=== PATIENT | male | born 1975 | race Caucasian/White ===

== ENCOUNTER 2017-09-15 18:40 | Emergency (ER) | payer OTHER, MEDICAID, SELFPAY ==
[2017-09-15 19:36] VITALS: BP 164/109; PULSE 76; RESP 16; TEMP 36.4; O2SAT 100; BMI 30.8
[2017-09-15] MEDS: ONDANSETRON 4 MG/2 ML INJ IV (20:01)
[2017-09-15 20:17] LABS: Add Manual Diff / Slide Review NO; Basophils Percent Auto 0.5 % (0-2); Eosinophils Percent Auto 2.7 % (2-4); Hemoglobin 13.4 g/dL (13.5-17.5); Lymphocytes Percent Auto 12.9 % (25-40); Mean Corpuscular HGB Conc 33.5 % (30-36); Mean Corpuscular Hemoglobin 26.3 PG (26-34); Mean Corpuscular Volume 78.5 fL (80-100); Monocytes Percent Auto 5.8 % (3-14); Neutrophils Absolute Auto 12000 /uL (3000-5900); Neutrophils Percent Auto 78.1 % (50-75); Platelet Count 203 X10^3/uL (150-400); Red Blood Cell Count 5.09 X10^6/uL (4.5-5.9); Red Cell Distribution Width 14.3 % (11.6-14.8); White Blood Cell Count 15.4 X10^3/uL (4.5-11.0)
[2017-09-15 20:27] LABS: Prothrombin Time 10.8 SECONDS (10.1-12.7)
[2017-09-15 20:29] LABS: PTT Partial Thromboplastin Tim 27 SECONDS (26.4-36.2)
[2017-09-15 20:31] LABS: Alanine Aminotransferase 30 IU/L (21-72); Albumin 4.4 g/dL (3.5-5.0); Albumin Globulin Ratio 1.5 (1.0-2.8); Alkaline Phosphatase 57 U/L (38-126); Aspartate Aminotransferase 26 IU/L (17-59); Bilirubin Total 0.5 mg/dL (0.2-1.3); Blood Urea Nitrogen 20 mg/dL (9-20); Calcium 9.6 mg/dL (8.4-10.2); Carbon Dioxide 31 mmol/L (22-32); Chloride 102 mmol/L (98-107); Estimated Glomerular Filt Rate > 60.0 mL/min (>60); Glucose 111 mg/dL (70-100); HEMOLYSIS < 15 (0-50); Lipase 41 U/L (23-300); Potassium 4.4 mmol/L (3.4-5.1); Sodium 143 mmol/L (137-145); Total Protein 7.4 g/dL (6.3-8.2)
--- NOTE | 2017-09-15 23:57 | ED.ABDPAIN ---
HPI - Abdominal Pain General Chief Complaint: Abdominal Pain Stated Complaint: ABD PAIN Time Seen by Provider: 09/15/17 23:57 Source: patient Mode of arrival: ambulatory Limitations: no limitations History of Present Illness HPI narrative: the patient had AG strength that he made himself this afternoon. Afterwards he developed right mid abdominal cramping and vomiting. He arrives here with ongoing abdominal pain with some radiation to the back. He has ongoing nausea, but has not vomited. He has no diarrhea. He denies constipation but does not have frequent bowel movements. He denies fever or chills. He has no urinary complaints. He has no chronic abdominal issues. He has no associated chest pain or dyspnea. Related Data Previous Rx's Medication Instructions Recorded ondansetron [Zofran ODT] 4 mg PO Q4H PRN #10 tab 09/16/17 Allergies Allergy/AdvReac Type Severity Reaction Status Date / Time No Known Drug Allergies Allergy Verified 09/15/17 19:36 Review of Systems Review of Systems All systems reviewed & are unremarkable except as noted in HPI and below Constitutional Denies chills, Denies fever(s), Denies lethargy and Denies weakness ENT Ears, Nose, Mouth, and Throat: Denies change in voice, Denies neck pain and Denies sore throat Cardiovascular Denies chest pain, Denies irregular heart rhythm, Denies lightheadedness, Denies palpitations, Denies dyspnea, Denies dyspnea on exertion and Denies orthopnea Respiratory Denies cough, Denies dyspnea, Denies dyspnea on exertion and Denies wheezing Gastrointestinal Gastrointestinal: Reports abdominal pain, Denies change in bowel habits, Denies diarrhea, Reports nausea and Reports vomiting Genitourinary Denies hematuria, Denies flank pain, Denies urinary incontinence and Denies urinary urgency Musculoskeletal Denies neck pain Integumentary/Breasts Denies pruritus, Denies erythema, Denies rash and Denies wounds Neurologic Denies weakness Endocrine Denies palpitations Allergic/Immunologic Denies wheezing [facility] Social History Smoking Status: Current every day smoker Exam Initial Vital Signs Initial Vital Signs: Vital Signs Temperature 97.6 F 09/15/17 19:36 Pulse Rate 76 09/15/17 19:36 Respiratory Rate 16 09/15/17 19:36 Blood Pressure 164/109 H 09/15/17 19:36 Pulse Oximetry 100 09/15/17 19:36 Const General: cooperative and well developed Nutritional Appearance: well nourished Orientation: alert, awake, oriented x3 and not confused HENMT Throat: posterior oropharynx normal Eyes Conjunctivae: conjunctivae normal Resp Effort & Inspection: normal respiratory effort, able to speak in complete sentences, no respiratory distress and no use of accessory muscles Auscultation: clear to auscultation bilaterally, no rales, no rhonchi and no wheezes Cardio Rate: regular rate Rhythm: regular rhythm Heart Sounds: no click, no gallops, no murmurs and no rubs Pulses: normal peripheral pulses GI Inspection: non-distended Palpation: soft, no hepatosplenomegaly, No guarding, No pulsatile mass and tender (RUQ) Auscultation: normal bowel sounds Back/Spine/Pelvis Back: No CVA tenderness Skin General: no rashes or lesions noted Neuro General: alert, oriented x3, gait normal and no focal motor deficits Speech: speech normal Extrem General: full ROM, no clubbing, cyanosis or edema, no pedal edema and no calf tenderness Course Orders Ordered: ED Orders 09/15/17 20:10 Complete Blood Count AUTO DIFF Stat Comprehensive Metabolic Panel Stat Lipase Stat Partial Thromboplastin Time Stat Prothrombin Time INR Stat 09/16/17 00:01 US abdomen complete Stat Discontinued Medications Ketorolac Tromethamine (Toradol) 30 mg IV NOW ONE Stop: 09/16/17 00:02 Last Admin: 09/16/17 00:27 Dose: 30 mg Metoclopramide HCl (Reglan) 10 mg IV NOW ONE Stop: 09/16/17 00:02 Last Admin: 09/16/17 00:27 Dose: 10 mg Ondansetron HCl (Zofran) 4 mg IV NOW ONE Stop: 09/15/17 19:46 Last Admin: 09/15/17 20:01 Dose: 4 mg Vital Signs - 8 hr 09/15/17 19:36 Temperature 97.6 F Pulse Rate 76 Respiratory Rate 16 Blood Pressure 164/109 H Pulse Oximetry 100 MDM - Abdominal Pain Lab Data Result diagrams: 09/15/17 20:10 09/15/17 20:10 Lab Results 09/15/17 09/15/17 09/15/17 Range/Units 20:10 20:10 20:10 WBC 15.4 H (4.5-11.0) X10^3/uL RBC 5.09 (4.5-5.9) X10^6/uL Hgb 13.4 L (13.5-17.5) g/dL Hct 40.0 L (41-53) % MCV 78.5 L (80-100) fL MCH 26.3 (26-34) PG MCHC 33.5 (30-36) % RDW 14.3 (11.6-14.8) % Plt Count 203 (150-400) X10^3/uL Neut % (Auto) 78.1 H (50-75) % Lymph % (Auto) 12.9 L (25-40) % [place] % (Auto) 5.8 (3-14) % Eos % (Auto) 2.7 (2-4) % Baso % (Auto) 0.5 (0-2) % Neut # (Auto) 53429 H (4088-6927) /uL PT 10.8 (10.1-12.7) SECONDS INR 1.0 (0.9-1.3) APTT 27 (26.4-36.2) SECONDS Sodium 143 (137-145) mmol/L Potassium 4.4 (3.4-5.1) mmol/L Chloride 102 (98-107) mmol/L Carbon Dioxide 31 (22-32) mmol/L BUN 20 (9-20) mg/dL Creatinine 1.00 (0.66-1.25) mg/dL Estimated GFR > 60.0 (>60) mL/min BUN/Creatinine Ratio 20.0 (6-22) Glucose 111 H (70-100) mg/dL Calcium 9.6 (8.4-10.2) mg/dL Total Bilirubin 0.5 (0.2-1.3) mg/dL AST 26 (17-59) IU/L ALT 30 (21-72) IU/L Alkaline Phosphatase 57 (38-126) U/L Total Protein 7.4 (6.3-8.2) g/dL Albumin 4.4 (3.5-5.0) g/dL Globulin 3.0 (1.7-4.1) g/dL Albumin/Globulin Ratio 1.5 (1.0-2.8) Lipase 41 (23-300) U/L Point of care testing: Urine Dip Bedside Urine Glucose Negative Bedside Urine Bilirubin - Negative Bedside Urine Ketone - Negative Urine Specific [place] 1.030 Bedside Urine Occult Blood - Negative Bedside Urine pH 6.0 Bedside Urine Protein - Negative Bedside Urine Urobilinogen - Negative Bedside Urine Nitrite - Negative Bedside Urine Leukocytes - Negative Esterase Imaging Data US - abdomen: Radiologist's impression: Normal Gallbladder. Normal ultrasound study. MDM Narrative Medical decision making narrative: The patient has improved with Toradol and Zofran. He will be discharged on Zofran. Discharge Plan Departure Patient Disposition: Home, Self-Care Clinical Impression: Abdominal pain Instructions: DI for Abdominal Pain-Adult Activity Restrictions/Additional Instructions: drink plenty of fluids. Stay well hydrated. Zofran every 4 hr as needed for nausea. Return here for increasing pain, persistent vomiting or fever. Prescriptions: New ondansetron [Zofran ODT] 4 mg tablet,disintegrating 4 mg PO Q4H PRN (Reason: nausea and vomiting) Qty: 10 RF: 0
--- NOTE | 2017-09-16 00:01 | DI.US.S_ITS ---
PROCEDURE: US ABDOMEN COMPLETE INDICATIONS: PAIN TECHNIQUE: Real-time scanning was performed of the abdominal and retroperitoneal organs, with image documentation. COMPARISON: None. FINDINGS: Liver: Liver is normal in size and homogeneous in echotexture. Gallbladder: The gallbladder appears normal Biliary ducts: Intrahepatic bile ducts are non-dilated. Extrahepatic bile duct caliber measures 5.7 mm. Normal is 6-7 mm or less in diameter, or 10 mm or less post-cholecystectomy. Pancreas: Not seen due to bowel gas Spleen: Spleen is normal in size and homogeneous in echotexture. Kidneys: Kidneys are normal in size and echotexture. Right kidney measures 12.4 cm long; left kidney measures 11.0 cm long. No hydronephrosis or nephrolithiasis. No solid masses. Aorta: Visualized aorta is normal in caliber at l. ess than 3 cm. the distal two thirds of the aorta could not be seen due to bowel gas Iliacs: Not seen due to bowel gas. IVC: Intrahepatic inferior vena cava is patent. Miscellaneous: No free abdominal fluid. IMPRESSION: No acute disease, source of current symptoms is not found. The pancreas, the lower two thirds of the aorta, and the iliac arteries could not be seen due to bowel gas. Dictated by: Shyam Figueroa M.D. on 09/16/2017 at 9:32 Approved by: Shyam Figueroa M.D. on 09/16/2017 at 9:33
[2017-09-16] MEDS: KETOROLAC 60 MG/2 ML VIAL 30 MG IV (00:27)
[2017-09-16] MEDS: METOCLOPRAMIDE 10 MG/2 ML INJ IV (00:27)
--- NOTE | 2017-09-16 00:59 | PC.NURSE ---
Pt requesting food, advised pt cannot eat until US report is read. Pt asking to use phone. Advised he is able to use hospital phone. Pt reports i wanna use my cell phone and walked out department doors.
[2017-09-16] MEDS: ONDANSETRON 4 MG ODT PREPACK 1 BOTTLE MISC (01:53)
[2017-09-16 01:57] VITALS: BP 153/97; PULSE 73; RESP 18; TEMP 36.4; O2SAT 100
== END 2017-09-16 01:58 | disposition home or self-care (01) ==
PROVIDERS: Emergency Provider Emergency Medicine
DX: R10.9 Unspecified abdominal pain (principal)
CPT/HCPCS: 36415; 76700; 80053; 81003; 83690; 85025; 85610; 85730; 96374; 96375; 99283; 99284; J1885; J2405; J2765